=== PATIENT | female | born 1955 | race Two or more races ===

== ENCOUNTER 2025-03-31 20:20 | Emergency (ER) | payer OTHER ==
[~2025-03-31] VITALS: Ht 165.1 cm; Wt 119.7 kg
[2025-03-31] MEDS ORDERED: WELLBUTRIN XL300 MG PO (20:52)
[2025-03-31] MEDS ORDERED: ZOLOFT100 MG PO (20:52)
[2025-03-31] MEDS ORDERED: SYNTHROID150 MCG PO (20:52)
[2025-03-31] MEDS ORDERED: AMBIEN CR12.5 MG PO (20:53)
[2025-03-31] MEDS ORDERED: PROTONIX40 MG PO (20:53)
[2025-03-31] MEDS ORDERED: MAG HYDROX/ALUMINUM HYD/SIMETH 30 ML BLIST.PACK PO ONE ×2 (21:05→21:15)
[2025-03-31] MEDS ORDERED: FAMOTIDINE/PF 20 MG/2 ML VIAL ONE (21:05)
[2025-03-31] MEDS ORDERED: FAMOtidine 10 MG/ML (4ML VIAL) IV ONE (21:15)
[2025-03-31 21:29] LABS: HEMOGLOBIN 12.6 g/dL (12.0-15.00); MEAN CELL VOLUME 84.3 fL (80.00-100.00); MEAN CORPUSCULAR HEMOGLOBIN 29.5 pg (27.00-32.0); PLATELET COUNT 316 K/uL (150-450); RED BLOOD COUNT 4.27 M/uL (4.00-6.00); RED CELL DISTRIBUTION WIDTH 13.9 % (11.5-14.5)
[2025-03-31 21:36] LABS: URINE APPEARANCE Turbid; URINE BILIRRUBIN Negative (NEGATIVE); URINE BLOOD Negative; URINE COLOR Yellow; URINE GLUCOSE Negative (NEGATIVE); URINE KETONE Trace (NEGATIVE); URINE LEUKOCYTE Trace; URINE NITRATE Negative; URINE PROTEIN Negative (NEGATIVE); URINE UROBILINOGEN 0.2 E.U./dl
[2025-03-31 21:40] LABS: URINE BACTERIA 1059.7 uL (0.0-1933); URINE CAST 0.14 uL (0.0-1.40); URINE EPITHELIAL CELLS 66.3 uL (0.0-38.8); URINE RBC 18.5 uL (0.0-20.8); URINE WBC 25.6 uL (0.0-23.2)
[2025-03-31 21:50] LABS: ALBUMIN 3.8 gm/dL (3.4-5.0); BILIRUBIN TOTAL 0.33 mg/dL (0.3-1.2); CALCIUM 9.3 mg/dL (8.5-10.1); CREATININE SERUM 0.98 mg/dL (0.55-1.02); GFR 56.1; GLOBULINA 4.5 G/DL (2.4-3.5); POTASSIUM 3.81 mEq/L (3.5-5.1); TOTAL PROTEIN 8.3 gm/dL (6.4-8.2)
== END 2025-03-31 22:24 | disposition home or self-care (01) ==
LOC: ER 20:20
PROVIDERS: General Practice
DX: K21.9 Gastro-esophageal reflux disease without esophagitis (principal); I10 Essential (primary) hypertension; E03.9 Hypothyroidism, unspecified; F41.9 Anxiety disorder, unspecified